=== PATIENT | female | born 2000 | race Caucasian/White ===

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

== ENCOUNTER 2022-12-08 01:52 | Emergency (ER) | payer OTHER ==
[2022-12-08] MEDS ORDERED: Acetaminophen 500 MG TAB ONE (02:31)
[2022-12-08] MEDS ORDERED: Dexamethasone 10 MG/ML VIAL ONE (03:09)
[2022-12-08 03:25] LABS: #Monocytes 0.7 thou/uL (0.11-0.59); #Neutrophils 9.4 thou/uL (1.40-6.50); %Basophils 0.3 % (0.0-1.0); %Eosinophils 0.3 % (0.0-10.0); %Monocytes 5.8 % (0.0-10.0); %Neutrophils 80.4 % (42.0-75.0); Hematocrit 39.8 % (36.0-47.0); Hemoglobin 13.5 g/dL (12.0-16.0); Mean Corpuscular HGB CONC 33.9 g/dL (32.0-36.0); Mean Corpuscular Hemoglobin 30.2 pg (27.0-31.0); Mean Platelet Volume 9.7 fL (7.4-10.4); Platelet Count 222 10x3/uL (130-400); RBC Distribution Width 13.2 % (11.5-14.5); Red Blood Cell (RBC) Count 4.47 mill/uL (4.20-5.40); White Blood Cell (WBC) Count 11.7 10x3/uL (4.8-10.8)
[2022-12-08 03:41] LABS: SARS-CoV-2 NAA Rapid Test Not Detected (NotDetected)
[2022-12-08] MEDS ORDERED: Ketorolac Tromethamine 30 MG/ML VIAL ONE (04:31)
== END 2022-12-08 04:45 | disposition home or self-care (01) ==
LOC: ERS 01:52
DX: J06.9 Acute upper respiratory infection, unspecified (principal); F17.290 Nicotine dependence, other tobacco product, uncomplicated; Z20.822 Contact with and (suspected) exposure to COVID-19
CPT/HCPCS: 85025; 87081; 87430; 96374; J1100; J1885

== ENCOUNTER 2022-12-11 08:11 | Emergency (ER) | payer OTHER ==
[2022-12-11] MEDS ORDERED: Bicillin LA 1.2 MILLION UNITS/2 ML SYRINGE ONE (09:18)
[2022-12-11] MEDS ORDERED: Dexamethasone 4 MG TAB ONE (09:18)
[2022-12-11] MEDS ORDERED: Acetaminophen 325 MG TAB ONE (09:18)
[2022-12-11 10:07] LABS: SARS-CoV-2 NAA Rapid Test Not Detected (NotDetected)
== END 2022-12-11 09:46 | disposition home or self-care (01) ==
LOC: ERS 08:11
DX: J02.0 Streptococcal pharyngitis (principal); F17.290 Nicotine dependence, other tobacco product, uncomplicated; Z20.822 Contact with and (suspected) exposure to COVID-19
CPT/HCPCS: 87081; 87430; 96372; 99283; J0561; J8540